=== PATIENT | female | born 1970 | race Caucasian/White ===

== ENCOUNTER 2016-12-14 05:20 | Day surgery (SDC) | payer BC ==
[2016-12-09 21:26] LABS: BASOPHILS 0.4 %; BASOPHILS ABSOLUTE 0.02 10/3/uL (0.0-0.16); EOSINOPHILS 1.2 %; EOSINOPHILS ABSOLUTE 0.06 10/3/uL (0.0-0.53); HEMATOCRIT 42.8 % (36.0-48.0); HEMOGLOBIN 13.7 g/dL (12.0-16.0); LYMPHOCYTES 29.2 %; MEAN CORPUSCULAR HEMOGLOB 28.9 pg (26.0-34.0); MEAN CORPUSCULAR VOLUME 90.3 fL (80-100); MEAN PLATELET VOLUME 10.4 fL (9.2-13.0); MONOCYTES 8.8 %; MONOCYTES ABSOLUTE 0.45 10/3/uL (0.21-1.20); NEUTROPHILS 60.4 %; NEUTROPHILS ABSOLUTE 3.11 10/3/uL (2.02-8.40); PLATELET COUNT 281 10/3/uL (150-400); RBC DISTRIBUTION WIDTH 13.6 % (12.0-16.0); RED CELL COUNT 4.74 10/6/uL (4.0-5.6); WHITE BLOOD CELLS 5.1 10/3/uL (4.5-10.5)
[2016-12-09 21:27] LABS: MANUAL DIFF NO %
[2016-12-09 21:39] LABS: A/G RATIO 1.6 (0.7-1.9); ALBUMIN 4.2 G/DL (3.5-5.0); ALKALINE PHOSPHATASE 78 U/L (45-117); BUN (BLOOD UREA NITROGEN) 15 MG/DL (6-23); CALCIUM, SERUM 9.2 MG/DL (8.5-10.4); CHLORIDE, SERUM 109 MMOL/L (96-112); CO2 (CARBON DIOXIDE) 26 MMOL/L (24-34); CREATININE 0.65 MG/DL (0.55-1.02); GFR AFRICAN AMERICAN 125 ML/MIN (>=60); GFR NON AFRICAN AMERICAN 108 ML/MIN (>=60); GLOBULIN 2.6 G/DL (2.5-4.1); GLUCOSE, SERUM 98 MG/DL (60-99); POTASSIUM, SERUM 4.5 MMOL/L (3.5-5.3); SGOT(AST) 13 U/L (5-40); SGPT(ALT) 17 U/L (5-65); SODIUM, SERUM 142 MMOL/L (135-148); TOTAL BILIRUBIN 0.3 MG/DL (0-1.2); TOTAL PROTEIN 6.8 G/DL (6.0-8.5)
--- NOTE | ~2016-12-14 | OP ---
Record Of Operation [facility] [address] [place]. [address] NAME: GABY LINCOLN : 74 STATUS : REG [facility] [place] PAT#: [id number] AGE: 46 ADM/REG DATE : 12/14/16 MR#: [id number] REPORT SERV DATE: 12/14/16 DICTATED BY: ZACHARY CLARK III DATE: 12/14/16 REPORT STATUS : Draft TRANSCRIBED BY: MODL DATE: 12/14/16 DATE OF PROCEDURE: 12/14/2016 PREOPERATIVE DIAGNOSIS: Symptomatic periumbilical hernia. POSTOPERATIVE DIAGNOSIS: Symptomatic chronically incarcerated periumbilical hernia. PROCEDURE: Open repair of periumbilical hernia with Prolene ventral patch mesh. SURGEON: Zachary Clark M.D. ANESTHESIA: General with intubation. COMPLICATIONS: None. ESTIMATED BLOOD LOSS: Less than 5 mL. SPECIMENS: None. DRAINS: None. LAP AND SPONGE COUNT: Correct x3. HISTORY: This 46-year-old female presented with evidence for symptomatic periumbilical hernia. It was felt that open repair of this hernia was indicated. This procedure, the risks, benefits, and alternatives, including but not limited to the risk for bleeding, infection, enterotomy, injury to abdominal structure, postop small bowel obstruction, ileus, incisional hernia recurrence, seroma formation, hematoma formation, infection of the mesh or enterocutaneous fistula requiring removal of the mesh, and unforeseen complications including deep venous thrombosis, pulmonary embolus, myocardial infarction, stroke, pneumonia, and were fully explained to the patient prior to the surgery. The expected length of recovery was explained. The patient's questions were answered. She fully understood the risks and agreed to the surgery as planned. DESCRIPTION OF PROCEDURE: After being properly identified and after discussing the risks and benefits of the surgery with her again in the preoperative area, the patient was taken to the operating room, and placed in supine position on the operating room table. General anesthesia was administered, and she was intubated without difficulty. The abdomen was prepped and draped sterilely in the usual fashion. After an appropriate "time-out" per JCAHO standards, a small incision was made along the inferior border of the navel. The incision was continued through the subcutaneous tissue. Hemostasis was controlled with the cautery. Using sharp dissection, the navel was elevated superiorly. The fascial defect was identified. The fascial defect was some 2 to 3 cm in size. There was a large amount of omentum chronically incarcerated within the hernia. Using sharp dissection, the omentum was dissected free from the surrounding subcutaneous tissue and from the hernia sac. The omentum was reduced back in the abdominal cavity. Using sharp dissection, the skin and Record Of Operation [address] [place]. [address] NAME: GABY LINCOLN : 74 STATUS : REG [facility]#: [id number] AGE: 46 ADM/REG DATE : 12/14/16 MR#: [id number] REPORT SERV DATE: 12/14/16 DICTATED BY: ZACHARY CLARK III DATE: 12/14/16 REPORT STATUS : Draft TRANSCRIBED BY: LOREN DATE: 12/14/16 subcutaneous tissue around the defect anteriorly was fully mobilized for several centimeters. The underside of the defect was palpated to be certain that there were no other fascial defects and to make certain that there was no bowel beneath this. Hemostasis was assured. We then selected a ventral Prolene mesh patch of the appropriate size. This was placed beneath the fascial defect in underlay fashion. This was secured around the edges of the defect with interrupted #1 Prolene sutures. This resulted in good coverage of the defect with the mesh lying posterior to the defect and overlapping the defect by 3 cm or so. The fascia was then closed over the mesh with interrupted #1 Prolene sutures. The fascia came together nicely over the mesh with no undue tension. Hemostasis was assured. The subcutaneous tissue was closed with running 3-0 chromic suture. The skin was closed with a running subcuticular 4-0 Monocryl stitch. The incision was injected with 0.5% Marcaine. Dressings were applied. Anesthesia was reversed. The patient was taken to the recovery room in stable condition. She tolerated the procedure well. Her family was informed the results of the surgery. The patient will be discharged when stable and comfortable. Her family was advised that she should keep the wound clean and dry for 48 hours, that she should not drive for one week after surgery or while using narcotics, that she should resume her usual medications, and that she should not perform any heavy lifting for five to six weeks. She has been asked to return in two weeks for followup or sooner if any fever, chills, nausea, vomiting, wound drainage, abdominal pain, weakness, or other problems prior to that time. She was given prescription for Percocet 7.5 one t.i.d., #12, as needed for pain, which she was advised not to use while driving. RHJ/MODL Zachary Clark III, M.D. / [id number] CC: Michele Brody III
--- NOTE | ~2016-12-14 | PREOPHP ---
PreOp History and Physical [facility] [address] [place]. [address] NAME: GABY LINCOLN : 74 STATUS : REG [facility] [place] PAT#: [id number] AGE: 46 ADM/REG DATE : 12/14/16 MR#: [id number] REPORT SERV DATE: 12/14/16 DICTATED BY: ZACHARY GRAY III DATE: 11/26/16 REPORT STATUS : Draft TRANSCRIBED BY: MODToni DATE: 11/26/16 HISTORY OF PRESENT ILLNESS: This 46-year-old female comes to the operating room for repair of a symptomatic umbilical hernia. The patient has umbilical hernia, which has been present for uxkef-ae-zept years. She has had no nausea, vomiting, or obstructive symptoms. The hernia has become larger recently, and she comes now for repair of the hernia. PAST MEDICAL HISTORY: Hypertension. MEDICATIONS: Citalopram, amlodipine, and naproxen. ALLERGIES: PENICILLIN. PAST SURGICAL HISTORY: Includes tubal ligation and section. FAMILY HISTORY: Positive for diabetes and pancreatic cancer and heart disease. SOCIAL HISTORY: The patient has a previous history of tobacco use. No history of alcohol use. REVIEW OF SYSTEMS: The patient has a history of easy bruising, had back pain joint pain. Her 14-point review of systems is otherwise unremarkable. PHYSICAL EXAMINATION: OBJECTIVE: GENERAL: Physical exam reveals an obese female, in no acute distress. She is alert and oriented x3. VITAL SIGNS: Blood pressure 136/90, pulse 101, and temperature 97.6. HEENT: Unremarkable. NEUROLOGIC: Cranial nerves 2 through 12 are normal. LUNGS: Clear. CARDIAC: Normal. ABDOMEN: Soft and nontender. The patient has a large supraumbilical hernia which is reducible. EXTREMITIES: Normal. ASSESSMENT: 1. A 46-year-old female with symptomatic supraumbilical or periumbilical hernia. 2. Obesity. 3. Hypertension. PLAN: The patient comes to the operating room now for open repair of this hernia. This procedure, the risks, benefits, and alternatives, including but not limited to the risk for bleeding, infection, enterotomy, injury to abdominal structure, postop small bowel obstruction, ileus, seroma formation, hematoma formation, possible need for use of mesh with risk of infection to the mesh or enterocutaneous fistula, requiring removal of the mesh, PreOp History and Physical [address] [address] NAME: GABY LINCOLN : 74 STATUS : REG [facility]#: [id number] AGE: 46 ADM/REG DATE : 12/14/16 MR#: [id number] REPORT SERV DATE: 12/14/16 DICTATED BY: ZACHARY GRAY III DATE: 11/26/16 REPORT STATUS : Draft TRANSCRIBED BY: LOREN DATE: 11/26/16 with possibility of recurrence of the hernia, and unforeseen complications including deep venous thrombosis, pulmonary embolus, myocardial infarction, stroke, pneumonia, and , have been explained to the patient prior to surgery. All her questions have been answered. She understands the risks and agrees to the surgery as planned. IRIS/LOREN Zachary Gray III, M.D. / [id number]
[~2016-12-14 05:20] MED LIST: CELEXA20 PO; IRON; K500 PO; NORV25 PO
== END 2016-12-14 16:04 | disposition home or self-care (01) ==
LOC: SDC 05:20
PROVIDERS: Surgery
PROC: 0WUF0JZ Supplement Abdominal Wall with Synthetic Substitute, Open Approach (ICD-10-PCS; principal; 2016-12-14 06:45)
DX: K42.9 Umbilical hernia without obstruction or gangrene (principal); I10 Essential (primary) hypertension; E66.9 Obesity, unspecified; D64.9 Anemia, unspecified; F41.9 Anxiety disorder, unspecified; F32.9 Major depressive disorder, single episode, unspecified; Z79.899 Other long term (current) drug therapy; Z88.0 Allergy status to penicillin; Z98.51 Tubal ligation status; Z98.890 Other specified postprocedural states; Z87.891 Personal history of nicotine dependence
CPT/HCPCS: 36415; 71020-PO; 80053; 84703; 85025; 87641; 93005; A9270-GY; C1781; J0690; J2250; J2270; J2405; J2550; J2710; J3010